=== PATIENT | female | born 1970 | race Caucasian/White ===

== ENCOUNTER → 2016-12-31 | Outpatient (CLI) | payer BC | LOC: EMS 07:30 | PROVIDERS: ATTEND Surgery Pediatric Surgery | DX: E11.65 Type 2 diabetes mellitus with hyperglycemia (principal); E87.2 Acidosis ==

== ENCOUNTER → 2017-02-01 | Outpatient (CLI) | payer BC | LOC: EMS 12:20 | PROVIDERS: ATTEND Internal Medicine | DX: R53.1 Weakness (principal); R11.10 Vomiting, unspecified; E13.10 Other specified diabetes mellitus with ketoacidosis without coma ==